=== PATIENT | male | born 1955 | race African-American/Black ===

== ENCOUNTER 2021-10-29 09:54 | Emergency (ER) | payer OTHER ==
[~2021-10-29] VITALS: Ht 170.2 cm; Wt 74.8 kg
[~2021-10-29 09:54] MED LIST: ALEVE220 M1; ASPIRIN EC325 M1; IBUPROFEN 200200 M1; ULTRAM 50MG TAB50 MG PO
[2021-10-29 11:07] LABS: ABSOLUTE EOSINOPHILS 0.2 thou/uL (0.0-0.7); ABSOLUTE LYMPHOCYTES 0.9 thou/uL (0.8-5.3); ABSOLUTE MONOCYTES 0.3 thou/uL (0.0-1.2); ABSOLUTE NEUTROPHILS 1.5 thou/uL (1.6-8.1); BASOPHILS 0.6 %; HEMATOCRIT 44.8 % (42.0-52.0); HEMOGLOBIN 14.8 gm/dL (14.0-18.0); LYMPHOCYTES 32.6 %; MCH 31.2 pg (26.0-34.0); MCHC 33.1 g/dL (28.0-37.0); MCV 94.3 fL (80.0-100.0); MONOCYTES 9.6 %; MPV 6.1 fl. (7.2-11.1); NUCLEATED RBCS 0 /100WBC; PLATELET COUNT* 271 thou/uL (150-400); POLYS 50.2 %; RBC 4.75 mil/uL (4.50-6.00); RDW-CV 15.3 % (10.5-14.5); WBC 2.9 thou/uL (4.0-11.0)
[2021-10-29 11:17] LABS: CREATININE 1.2 mg/dL (0.6-1.3); POTASSIUM 4.3 mmol/L (3.5-5.1)
[2021-10-29 11:22] LABS: ALBUMIN 3.6 g/dL (3.4-5.0); TOTAL BILIRUBIN 0.4 mg/dL (<0.1-1.0); TOTAL PROTEIN 7.4 g/dL (6.4-8.2)
[2021-10-29] MEDS ORDERED: HYDROCODON-ACE1 EAC7 PO (11:54)
[2021-10-29 12:07] VITALS: BP 139/93
--- NOTE | 2021-10-29 13:57 | EKG ---
[place] [address] ELECTROCARDIOGRAM REPORT Name: LAURENCE ARAGON Room: [facility]#: [id number] Admission: 10/29/21 Attend Phys: Discharge: 10/29/21 Date of : 59 Date of Service: 10/29/21 [facility] Report #: [id number] THIS REPORT FOR: //name// [facility] ED Test Date: 2021-10-29 Test Time: 10:24:51 Pat Name: LAURENCE ARAGON Department: Room: Gender: Velvet Weaver: : 1955 Requested By: Omid Chandra Order Number: [id number] MD: Guille Ortega Measurements Intervals [place] Rate: 62 P: 44 ME: 194 QRS: 46 QRSD: 91 T: 27 QT: 411 QTc: 418 Interpretive Statements Sinus rhythm Probable left atrial enlargement Abnormal R-wave progression, early transition ST elevation, consider early repolarization no previous ECG available for comparison Electronically Signed On 10-29-2021 13:57:27 [employer]IOR [employer] by Guille Ortega [email or web address] <ELECTRONICALLY SIGNED> By: Guille Ortega MD, [facility] 10/29/21 1357 1024 1024 Guille Ortega MD, [facility] /EPI
== END 2021-10-29 12:08 | disposition home or self-care (01) ==
LOC: M.ERS 09:54
PROVIDERS: Family Medicine
DX: S22.32XA Fracture of one rib, left side, initial encounter for closed fracture (principal); F17.210 Nicotine dependence, cigarettes, uncomplicated; X58.XXXA Exposure to other specified factors, initial encounter; Y93.89 Activity, other specified; Y92.89 Other specified places as the place of occurrence of the external cause; Y99.8 Other external cause status